=== PATIENT | female | born 1980 | race Asian ===

== ENCOUNTER 2025-07-22 17:06 | Emergency (ER) | payer MEDICAID ==
[~2025-07-22] VITALS: Ht 165.1 cm; Wt 56.7 kg
[2025-07-22 17:15] VITALS: TEMP 98.2
[2025-07-22] MEDS ORDERED: MORPHINE SULFATE INJ 2 MG/ML DISP.SYRIN IV ONE (18:00)
[2025-07-22 18:15] LABS: PREGNANCY TEST URINE QUAL NEGATIVE (NEGATIVE)
[2025-07-22] MEDS ORDERED: METOCLOPRAMIDE HCL 10 MG/2 ML VIAL ONE (18:38)
[2025-07-22] MEDS ORDERED: MORPHINE SULFATE INJ 4 MG/ML DISP.SYRIN ONE (18:38)
[2025-07-22] MEDS: METOCLOPRAMIDE HCL 10 MG/2 ML VIAL IV ONE (18:50)
[2025-07-22] MEDS: IV NS 0.9% 1,000 ML BAG IV ONE (18:50)
[2025-07-22] MEDS: MORPHINE SULFATE INJ 2 MG/ML DISP.SYRIN IV ONE (18:55)
[2025-07-22 19:08] LABS: PLATELET COUNT (AUTO) 212 K/uL (150-450); RED BLOOD CELL COUNT(AUTO) 4.38 MIL/uL (4.0-5.2); RED CELL DISTRIBUTION WIDTH 14.2 % (11.5-15.0); WHITE BLOOD COUNT (AUTO) 5.3 K/uL (4.3-11.0)
[2025-07-22 19:15] LABS: CALCIUM, SERUM 9.0 mg/dL (8.5-10.1); CREATININE 0.9 mg/dL (0.6-1.3); SODIUM SERUM 137.0 mmol/L (136-145); UREA NITROGEN, BLOOD 13.0 mg/dL (7-18)
[2025-07-22 19:20] LABS: ASPARTATE AMINOTRANSFERASE 20.0 U/L (15-37); TOTAL PROTEIN, SERUM 8.2 g/dL (6.4-8.2)
[2025-07-22] MEDS: KETOROLAC TROMETHAMINE 15 MG/ML VIAL IV ONE (20:18)
[2025-07-22 20:27] VITALS: BP 119/70; O2SAT 99
== END 2025-07-22 20:27 | disposition home or self-care (01) ==
LOC: ER 17:13
DX: R55 Syncope and collapse (principal); T50.905A Adverse effect of unspecified drugs, medicaments and biological substances, initial encounter; S09.90XA Unspecified injury of head, initial encounter; G89.29 Other chronic pain; R42 Dizziness and giddiness; X58.XXXA Exposure to other specified factors, initial encounter; Y93.89 Activity, other specified; Y92.89 Other specified places as the place of occurrence of the external cause; Y99.9 Unspecified external cause status
CPT/HCPCS: 99285; 96374; 70450; 96361; 96375; 93005; 85025; 84703; 36415; 80053; J2270; J2765